=== PATIENT | male | born 1955 | race Caucasian/White ===

== ENCOUNTER 2016-08-23 10:09 | Emergency (ER) | payer SELFPAY ==
[~2016-08-23] VITALS: Ht 180.3 cm; Wt 110.0 kg
[~2016-08-23 10:09] MED LIST: ALBU6.7H INH; ATOR20TA PO; DOXY100T PO; GEMF600T PO; LORTA5 PO; PRED20 PO; TAMS0.4C67 PO
[2016-08-23 10:11] VITALS: BP 165/111; PULSE 92; RESP 12; TEMP 98.2; O2SAT 93
[2016-08-23] MEDS ORDERED: IBUP800T23 PO (10:54)
[2016-08-23] MEDS ORDERED: CIPR500T2 PO (10:54)
[2016-08-23] MEDS ORDERED: POLY10O LEFT EYE (10:54)
[2016-08-23] MEDS ORDERED: CIPR0.3S LEFT EAR (10:54)
--- NOTE | 2016-08-23 10:55 | PD ---
HPI Chief Complaint: ENT Complaint Time Seen by Provider: 10:51 Travel History International Travel<30 days: No Contact w/Intl Traveler<30days: No Traveled to known affect area: No History of Present Illness HPI 61-year-old male presents to the emergency Department with complaint of left ear pain 2 days and onset of left eye itching, redness, drainage that he woke up with this morning. Denies fever, chills, nausea, vomiting. Denies sore throat, nasal congestion, cough. Has not taken any medications or tried any treatments to alleviate his symptoms. No one else is symptoms like this that he knows of. Denies allergies. History of COPD. Patient's blood pressure is elevated in the ER; he denies chest pain, shortness of breath, headache, nausea , vomiting, blurred vision, flushing, diaphoresis. Denies history of hypertension and is not on medications. Does not have primary care provider. No other modifying factors or associated signs and symptoms. PFSH Past Medical History Arthritis: Yes Autoimmune Disease: Yes (RHEUMATOID ARTHRITIS) Anxiety: Yes Depression: Yes Heart Rhythm Problems: No Cancer: No Cardiovascular Problems: No High Cholesterol: Yes Chest Pain: No Congestive Heart Failure: No Cerebrovascular Accident: No Diabetes: No Diminished Hearing: No Endocrine: No Gastrointestinal Disorders: Yes (DIVERTICULITIS) Genitourinary: No Headaches: Yes Hypertension: Yes Immune Disorder: No Musculoskeletal: Yes Neurologic: No Psychiatric: Yes Reproductive: No Respiratory: No Migraines: Yes Myocardial Infarction: No Seizures: No Thyroid Disease: No Past Surgical History Abdominal Surgery: No AICD: No Cardiac Surgery: No Ear Surgery: No Endocrine Surgery: No Eye Surgery: No Genitourinary Surgery: No Gynecologic Surgery: No Oral Surgery: No Pacemaker: No Thoracic Surgery: No Other Surgery: Yes (SHOULDER, TUMOR REMOVED FROM COLON) Social History Alcohol Use: No (denies) Tobacco Use: Yes (08/01 PPD) Substance Use: No (DENIES) Allergies-Medications (Allergen,Severity, Reaction): Coded Allergies: No Known Allergies (Verified , 08/23/16) Reported Meds & Prescriptions Reported Meds & Active Scripts Active Ibuprofen 800 Mg Tab 800 Mg PO Q6HR PRN Ciprofloxacin (Ciprofloxacin HCl) 500 Mg Tab 500 Mg PO BID 10 Days Ciprodex Otic Drops (Ciprofloxacin-Dexamethasone Otic Drops) 0.3-0.1% Susp 4 Drop LEFT EAR BID 10 Days Polytrim Opth Drops (Polymyxin/Trimethoprim Sulfate) 10,000-0.1 Unit/Ml-% Soln 2 Drop LEFT EYE Q6HR 7 Days Proventil Hfa (Albuterol Sulfate) 6.7 Gm Aero 2 Puff INH Q4H PRN * SHAKE WELL BEFORE USE * Doxycycline Hyclate 100 mg (Doxycycline Hyclate) 100 Mg Tab 1 Tab PO Q12H 10 Days Deltasone (Prednisone) 20 Mg Tab 40 Mg PO DAILY [place] 5-325 mg (Hydrocodone-Acetaminophen 5-325 mg) 5 mg/325 mg Tab 1 Tab PO Q4H PRN Atorvastatin 20 mg tab (Atorvastatin Calcium) 20 Mg Tab 1 Tab PO HS Gemfibrozil 600 Mg Tab 600 Mg PO BID Flomax (Tamsulosin HCl) 0.4 Mg Cap 0.4 Mg PO DAILY Take one tablet by mouth daily for BPH Review of Systems Except as stated in HPI: all other systems reviewed are Neg Physical Exam Narrative GENERAL: Well-nourished, well-developed male patient, in no acute distress; afebrile, nontoxic-appearing SKIN: Warm and dry. HEAD: Atraumatic. Normocephalic. EYES: Pupils equal and round at 3 mm with brisk reaction. PERRLA. EOMI. Left eye with scleral erythema and mild lid edema. No orbital tenderness, erythema or cellulitis. Left eye without photophobia. No consensual photophobia. No scleral icterus. Purulent drainage noted. ENT: Mucosa pink and moist. No erythema or exudates. No uvular edema. No uvular , palatal, or tonsillar deviation. Airway patent. EARS: Bilateral pinnae and external canals appear within normal limits. Left ear canal with erythema, edema; without drainage noted; ear canal is open and able to visualize TM. Left pinna with tenderness on palpation. Bilateral tympanic membranes without erythema, dullness or perforation. NECK: Trachea midline. CARDIOVASCULAR: Regular rate. RESPIRATORY: No accessory muscle use. GASTROINTESTINAL: Obese. NEUROLOGICAL: Awake and alert. Oriented 3. No obvious cranial nerve deficits. Motor grossly within normal limits. Normal speech. PSYCHIATRIC: Appropriate mood and affect; insight and judgment normal. Data Data Last Documented VS Vital Signs Date Time Temp Pulse Resp B/P Pulse Ox O2 Delivery O2 Flow Rate FiO2 08/23/16 11:19 140/107 08/23/16 10:11 98.2 92 12 93 Room Air Orders Ibuprofen (Motrin) (08/23/16 11:00) MDM Medical Decision Making Medical Screen Exam Complete: Yes Emergency Medical Condition: Yes Medical Record Reviewed: Yes Differential Diagnosis Otitis externa, otitis media, cerumen impaction, conjunctivitis Narrative Course 61-year-old male physical exam consistent with left otitis externa and left eye conjunctivitis. Patient is afebrile. He denies fever, chills, nausea, vomiting. Patient's blood pressure is elevated in the ER. He denies history of hypertension and is not currently on medications. He has not received medical care in multiple years. He is asymptomatic. Blood pressure recheck 140 /107. Oxygen saturation 95% on room air. Patient has history of COPD. Ciprofloxacin eardrops, Polytrim eyedrops, oral ciprofloxacin prescribed for home. Patient is medically cleared and stable for discharge. Discussed reasons to return to the emergency department. Instructed patient to follow up with primary care provider. Patient agrees with treatment plan. The patients vital signs are stable and the patient is stable for outpatient follow-up and treatment. Patient discharged home, stable and in no acute distress. Diagnosis Primary Impression: Left otitis externa Qualified Code: H60.502 - Acute otitis externa of left ear, unspecified type Additional Impression: Conjunctivitis, left eye Qualified Code: H10.9 - Conjunctivitis of left eye, unspecified conjunctivitis type Referrals: Primary Care Physician Patient Instructions: Conjunctivitis (ED), General Instructions, Otitis Externa (ED) Departure Forms: Tests/Procedures, Work Release Enter return to work date: Aug 24, 2016 Additional Instructions: Take antibiotics as prescribed and complete full course Ibuprofen or Tylenol as directed and as needed to reduce pain and fever Avoid getting water in the ears Do not put anything in the ears; including Q-tips Follow-up with primary care provider Return to the emergency department immediately with worsening of symptoms Conjunctivitis is contagious Use antibiotic drops as prescribed Apply warm or cool compresses to both eyes for a few minutes several times daily to minimize irritation Avoid triggers, such as allergens, that may irritate your eyes Wash your hands frequently Do not share washcloths, towels, pillows, or any other material that has touched your eyes with any other household members Follow-up with your primary care provider Follow-up with ophthalmology as needed Return to the emergency department immediately with worsening of symptoms Med/Other Pt SpecificInfo: Prescription(s) given Scripts Ibuprofen 800 Mg [id number] Mg PO Q6HR PRN (PAIN) #30 TAB Ref 0 Prov:Jennifer Joya 08/23/16 Ciprofloxacin 500 Mg [id number] Mg PO BID 10 Days Ref 0 Prov:Jennifer Joya 08/23/16 Ciprofloxacin-Dexamethasone Otic Drops (Ciprodex Otic Drops)0.3-0.1% Susp4 Drop LEFT EAR BID 10 Days Ref 0 Prov:Jennifer Joya 08/23/16 Polymyxin B-Trimethoprim Opth Drops (Polytrim Opth Drops)10,000-0.1 Unit/Ml-% Soln2 Drop LEFT EYE Q6HR 7 Days Ref 0 Prov:Jennifer Joya 08/23/16 Disposition: 01 DISCHARGE HOME Condition: Stable Jennifer Joya Aug 23, 2016 10:55
[2016-08-23] MEDS ORDERED: IBUPROFEN 800 MG TAB PO ONE (11:00)
[2016-08-23 11:19] VITALS: BP 140/107; O2SAT 95
== END 2016-08-23 11:46 | disposition home or self-care (01) ==
LOC: NEPB 10:09
DX: H60.502 Unspecified acute noninfective otitis externa, left ear (principal); H10.9 Unspecified conjunctivitis; R03.0 Elevated blood-pressure reading, without diagnosis of hypertension; E78.00 Pure hypercholesterolemia, unspecified; F17.200 Nicotine dependence, unspecified, uncomplicated; Z87.09 Personal history of other diseases of the respiratory system; Z87.39 Personal history of other diseases of the musculoskeletal system and connective tissue; Z86.59 Personal history of other mental and behavioral disorders; Z86.2 Personal history of diseases of the blood and blood-forming organs and certain disorders involving the immune mechanism; Z87.19 Personal history of other diseases of the digestive system
CPT/HCPCS: 99283